=== PATIENT | male | born 1985 | race Caucasian/White ===

== ENCOUNTER 2016-08-28 14:50 | Inpatient (IN) ==
[2016-08-28] MEDS ORDERED: IOPAMIDOL 100 ML BOTTLE IJ ONE (14:51)
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
[2016-08-28] MEDS ORDERED: CLINDAMYCIN 600 MG in DEXTROSE 5% IN WATER 50 ML IV ONE (16:30)
[2016-08-28] MEDS ORDERED: VANCOMYCIN 1,000 MG in 0.9 % SODIUM CHLORIDE 250 ML IV ONE (16:30)
[2016-08-28] MEDS ORDERED: ONDANSETRON 4 MG/2 ML VIAL IV ONE (16:30)
[2016-08-28] MEDS: 0.9 % SODIUM CHLORIDE 1,000 ML IV SCH ×3 (16:45→21:20)
[2016-08-28] MEDS: HYDROmorphone 2 MG/ML SYRINGE IV PRN ×3 (17:21→19:20)
[2016-08-28 18:19] LABS: Basophils # (Auto) 0.1 K/mcL (0.0-0.3); Basophils % (Auto) 0.7 % (0.0-2.0); Eosinophils # (Auto) 0.1 K/mcL (0.0-0.7); Eosinophils % (Auto) 1.1 % (0.0-7.0); Granulocytes % (Auto) 65.9 % (38.0-78.0); Lymphocytes # (Auto) 2.4 K/mcL (1.5-4.8); Lymphocytes % (Auto) 20.4 % (15.5-49.0); Mean Cell Volume 68.6 fL (80.0-100.0); Mean Corpuscular HGB Conc 30.4 g/dL (31.0-36.0); Mean Corpuscular Hemoglobin 20.8 pg (26.0-34.0); Monocytes # (Auto) 1.4 K/mcL (0.1-0.9); Monocytes % (Auto) 11.9 % (1.0-9.0); Platelet Count 639 K/mcL (140-440); RBC 5.32 M/mcL (4.50-5.90); Red Cell Distribution Width 19.1 % (11.5-14.5)
[2016-08-28 18:28] LABS: ALT/SGPT 26 U/l (0-40); Albumin 3.4 gm/dL (3.2-5.2); Albumin/Globulin Ratio 0.7 (1.0-2.3); Alkaline Phosphatase 159 U/L (39-117); Blood Urea Nitrogen 3 mg/dl (6-20)
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
[2016-08-28 19:02] LABS: Appearance,Urine HAZY; Bacteria,Urine MOD /hpf (0); Bilirubin,Urine NEG (NEG); Color,Urine YELLOW; Glucose,Urine (UA) NEGATIVE (NEG); Leukocyte Esterase,Urine 250 /uL (NEG); Nitrate,Urine NEG (NEG); Protein,Urine NEG (NEG); Specific Gravity,Urine 1.008 (1.000-1.035); Urine Blood 0.2 mg/dL (<0.03); Urine RBC 8 /hpf (0-1); Urine Squamous Epithelial Cell < 1 /hpf (0-4); Urine Transitional Epi Cells < 1 /hpf (0-2); Urine WBC 37 /hpf (0-4)
[2016-08-28] MEDS ORDERED: 0.9 % SODIUM CHLORIDE 1,000 ML IV ONE (19:08)
[2016-08-28] MEDS ORDERED: traZODone HCL 50 MG TABLET PO PRN (19:18)
[2016-08-28] MEDS ORDERED: DIAZEPAM 5 MG TABLET PO PRN (19:27)
[2016-08-28] MEDS: oxyCODONE HCL 5 MG TABLET PO PRN (20:36)
[2016-08-28] MEDS ORDERED: ZOLPIDEM 10 MG TABLET PO SCH (21:00)
[2016-08-28] MEDS: morphine 30 MG TAB.SR.12H PO SCH (21:15)
[2016-08-28] MEDS: METOPROLOL TARTRATE 25 MG TABLET PO SCH (21:15)
[2016-08-28] MEDS: DOCUSATE SODIUM 100 MG CAPSULE PO SCH (22:49)
[2016-08-28] MEDS: ERTAPENEM 1 GM in 0.9 % SODIUM CHLORIDE 50 ML IV SCH (22:49)
[2016-08-28] MEDS: BACLOFEN 10 MG TABLET PO SCH (22:49)
[2016-08-28] MEDS: PREGABALIN 100 MG CAPSULE PO SCH (22:49)
[2016-08-28] MEDS: 0.9 % SODIUM CHLORIDE 10 ML SYRINGE IV SCH ×2 (23:23)
[2016-08-29] MEDS: oxyCODONE HCL 5 MG TABLET PO PRN ×5 (00:27→21:44)
[2016-08-29] MEDS: 0.9 % SODIUM CHLORIDE 1,000 ML IV SCH ×6 (00:45→21:16)
[2016-08-29] MEDS: HYDROmorphone 2 MG/ML SYRINGE IV PRN (04:26)
[2016-08-29] MEDS: morphine 30 MG TAB.SR.12H PO SCH ×3 (05:00→21:45)
[2016-08-29] MEDS: 0.9 % SODIUM CHLORIDE 10 ML SYRINGE IV SCH ×3 (05:43→16:59)
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
[2016-08-29] MEDS ORDERED: ENOXAPARIN 40 MG/0.4 ML SYRINGE SQ SCH (09:00)
[2016-08-29] MEDS: METOPROLOL TARTRATE 25 MG TABLET PO SCH ×2 (09:53→21:47)
[2016-08-29] MEDS: PREGABALIN 100 MG CAPSULE PO SCH ×2 (09:53→21:47)
[2016-08-29] MEDS: ERTAPENEM 1 GM in 0.9 % SODIUM CHLORIDE 50 ML IV SCH (09:53)
[2016-08-29] MEDS: BACLOFEN 10 MG TABLET PO SCH ×2 (09:53→16:59)
[2016-08-29] MEDS ORDERED: VANCOMYCIN 1,000 MG in 0.9 % SODIUM CHLORIDE 250 ML IV SCH (10:00)
[2016-08-29] MEDS: DOCUSATE SODIUM 100 MG CAPSULE PO SCH (10:32)
[2016-08-29] MEDS ORDERED: HYDROmorphone 2 MG/ML SYRINGE IV ONE (11:11)
[2016-08-29] MEDS ORDERED: HYDROmorphone 2 MG/ML SYRINGE ONE ×2 (11:30→22:40)
[2016-08-29] MEDS ORDERED: LORazepam 2 MG/ML VIAL IV ONE ×2 (13:03→13:05)
[2016-08-29] MEDS ORDERED: PROPOFOL 200 MG/20 ML VIAL IV ONE (14:00)
[2016-08-29] MEDS ORDERED: GLYCOPYRROLATE 0.2 MG/ML VIAL IV ONE (14:00)
[2016-08-29] MEDS ORDERED: ROCURONIUM 10 MG/ML ML IV ONE (14:00)
[2016-08-29] MEDS ORDERED: fentaNYL 250 MCG/5 ML VIAL IV ONE (14:00)
[2016-08-29] MEDS ORDERED: NEOSTIGMINE 1 MG/ML VIAL IV ONE (14:00)
[2016-08-29] MEDS ORDERED: KETAMINE 100 MG/ML ML IV ONE (14:00)
[2016-08-29] MEDS ORDERED: LIDOCAINE HCL/PF 100 MG/5 ML SYRINGE IV ONE (14:00)
[2016-08-29] MEDS ORDERED: DEXAMETHASONE 10 MG/ML VIAL IV ONE (14:00)
[2016-08-29] MEDS ORDERED: MIDAZOLAM 5 MG/5 ML VIAL IV ONE (14:00)
[2016-08-29] MEDS ORDERED: ONDANSETRON 4 MG/2 ML VIAL IV ONE (14:00)
[2016-08-29] MEDS ORDERED: ePHEDrine 50 MG/ML AMPUL IV PRN (14:16)
[2016-08-29] MEDS ORDERED: NALOXONE HCL 0.4 MG/ML VIAL IV PRN (14:16)
[2016-08-29] MEDS ORDERED: fentaNYL 100 MCG/2 ML VIAL IV PRN (14:16)
[2016-08-29] MEDS ORDERED: PROMETHAZINE 25 MG/ML VIAL IV PRN (14:16)
[2016-08-29] MEDS ORDERED: FLUMAZENIL 0.1 MG/ML ML IV PRN (14:16)
[2016-08-29] MEDS ORDERED: LACTATED RINGERS 250 ML IV PRN (14:16)
[2016-08-29] MEDS ORDERED: METOCLOPRAMIDE 10 MG/2 ML VIAL IV PRN (14:16)
[2016-08-29] MEDS ORDERED: IPRATROPIUM/ALBUTEROL 3 ML AMPUL.NEB NEB PRN (14:16)
[2016-08-29] MEDS ORDERED: BENZOCAINE/MENTHOL 1 LOZENGE PO PRN (14:16)
[2016-08-29] MEDS ORDERED: MEPERIDINE 25 MG/ML SYRINGE IV PRN (14:16)
[2016-08-29] MEDS ORDERED: HYDROmorphone 2 MG/ML SYRINGE IV PRN ×2 (14:16→22:11)
[2016-08-29] MEDS ORDERED: diphenhydrAMINE 50 MG/ML VIAL IV PRN (14:16)
[2016-08-29] MEDS ORDERED: ONDANSETRON 4 MG/2 ML VIAL IV PRN (14:16)
[2016-08-29] MEDS ORDERED: METHOCARBAMOL 1,000 MG/10 ML VIAL IV PRN (14:16)
[2016-08-29] MEDS ORDERED: LACTATED RINGERS 1,000 ML IV SCH (14:30)
--- NOTE | 2016-08-29 14:33 | Brief Operative Note ---
Date of procedure: 08/29/16 Pre-op diagnosis: PERINEAL AND RIGHT GROIN ABSCESS Post-op diagnosis: other (PERINEAL AND RIGHT GROIN ABSCESS IN CONTINUITY) Procedure: INCISION AND DEBRIDEMENT OF PERINEAL AND RIGHT GROIN ABSCESS Grafts/Implants: No Anesthesia: GLMA Findings: LARGE ABSCESS EXTENDING FROM RIGHT PERIANAL SPACE INTO RIGHT BUTTOCK AND ANTERIORLY INTO RIGHT GROIN NEAR LOWER PUBIC AREA Surgeon: Miri Membreno Estimated blood loss (cc): 30 Specimens Removed/Pathology: other (AEROBIC AND ANAEROBIC CULTURES) Condition: stable Disposition: PACU
[2016-08-29] MEDS ORDERED: traZODone HCL 50 MG TABLET PO PRN (21:00)
[2016-08-29] MEDS ORDERED: ZOLPIDEM 10 MG TABLET PO SCH (21:00)
[2016-08-29] MEDS ORDERED: DIAZEPAM 5 MG TABLET PO PRN (22:09)
[2016-08-29] MEDS ORDERED: DIAZEPAM 5 MG TABLET ONE (22:40)
[2016-08-30] MEDS ORDERED: HYDROmorphone 2 MG/ML SYRINGE ONE ×3 (00:56→06:07)
[2016-08-30] MEDS: oxyCODONE HCL 5 MG TABLET PO PRN ×2 (01:23→10:59)
[2016-08-30] MEDS: VANCOMYCIN 1,000 MG in 0.9 % SODIUM CHLORIDE 250 ML IV SCH ×2 (02:55→12:24)
[2016-08-30] MEDS: 0.9 % SODIUM CHLORIDE 1,000 ML IV SCH ×2 (03:08→11:53)
[2016-08-30] MEDS ORDERED: DIAZEPAM 5 MG TABLET ONE (04:17)
[2016-08-30] MEDS: morphine 30 MG TAB.SR.12H PO SCH ×2 (05:58→14:20)
[2016-08-30] MEDS: PREGABALIN 100 MG CAPSULE PO SCH (10:33)
[2016-08-30] MEDS: METOPROLOL TARTRATE 25 MG TABLET PO SCH (10:33)
[2016-08-30] MEDS ORDERED: VANCOMYCIN 1,500 MG in 0.9 % SODIUM CHLORIDE 500 ML IV SCH (13:00)
--- NOTE | 2016-08-30 14:11 | Discharge Summary ---
Providers - Providers Patient information: Note initiated : 08/30/16 at 2:06 pm Service Date, if different from initiated Date: [] Patient: Urbano Jernigan 30 y/o M admitted on 08/28/16 for Rash/Wound to Coccyx. Chief Complaint: [] Date of admission: 08/28/16 Discharge date: 08/30/16 Attending physician: Miri Membreno Hospitalization Hospital course: 30-year-old male with history of T12 paraplegia and multiple decubitus ulcersrequiring multiple surgeries in the past. Patient presents with an abscess starting in his left buttock and extending anteriorly into his groin up to the suprapubic area. This was drained with Multiple counter drains one yesterday. He was packed with Aquasol AG and had a [place] drain placed and 2 counter incisions in the buttock Cultures grew out Staphylococcus aureus. He was previously positive for MRSA and VRE. The wound base is presently clean. He he has been uncooperative in his care. He has pulled his packing out and has removed his drains. He also has been venturing outside where his been seen to smokes suspicious substances along with his friend and his girlfriend. The patient states that he can care for his wounds at home He has therefore been discharged. [facility] Discharge diagnosis: perineal and sacral abscess Secondary discharge diagnosis: MULTIPLE DECUBITUS ULCERS PERIANAL AND PERINEAL ABSCESS t12 PARAPLEGIA Reason for admission: PERINEAL AND SACRAL ABSCESS Procedures: INCISION AND DEBRIDEMENT OF PERINEAL AND PERIANAL ABSCESS EXTENDING INTO LEFT GROIN AND SUPRAPUBIC AREA Complications: NONE Exam Temp Pulse Resp BP Pulse Ox 97.1 F L 82 18 144/78 97 08/30/16 07:08 08/30/16 07:08 08/30/16 07:08 08/30/16 07:08 08/30/16 07:49 - Neck no masses, no lymphadectomy, no venous distension - Cardiovascular Cardiovascular exam IM: Present: RRR, +S1, +S2 - Respiratory clear to auscultation - Abdomen Abdomen: Present: soft, non tender, bowel sounds - Rectum Rectum: Present: other (TOTAL LACK OF ANAL ACTIVITY;LARGE LEFT PERIANAL ABSCESS EXTENDING INTO PERIRECTAL SPACE AND ANTERIORLY INTO THE GROIN AND SUPRAPUBIC AREA) - Integumentary Present: other (SACRAL AND RIGHT ISCHIAL DECUBITUS ULCER; SUPERFICIAL ULCERATIONS RIGHT GREAT TOE) - Neurologic Present: other (t 12 PARAPLEGIA) Discharge Plan - Patient/Caregiver Discharge Instructions Activity: increase activity as tolerated Diet: Regular Diet Prescriptions: Doxycycline Monohydrate [Mondoxyne Nl] 100 mg PO BID #30 capsule - Follow up Plan Follow up with: Yari Marquez ARNP [Primary Care Provider] - Disposition: Home, Self-Care Prognosis: Good Rehab Potential: Good I certify that the patient requires SNF services.: No Overall status at discharge: patient is progressing back to baseline Pending Studies Resuscitation Status Full Code Diet Regular Diet Start Shakira Aug 30 Breakfast Hydromorphone HCl (Dilaudid) 1 mg IV Q2HP PRN PRN Reason: Pain Last Admin: 08/30/16 11:20 Dose: 1 mg Sodium Chloride (Sodium Chloride 0.9%) 1,000 mls @ 100 mls/hr IV .Q10H [facility] Last Admin: 08/30/16 11:53 Dose: Not Given Admin: 08/30/16 03:08 Dose: Not Given Admin: 08/29/16 21:16 Dose: Not Given Vancomycin HCl 1,500 mg/ (Sodium Chloride) 500 mls @ 333.3 mls/hr IV Q12H [facility] Last Admin: 08/30/16 13:54 Dose: Not Given Metoprolol Tartrate (Lopressor) 25 mg PO BID [facility] Last Admin: 08/30/16 10:33 Dose: 25 mg Admin: 08/29/16 21:47 Dose: 25 mg Morphine Sulfate (Ms Contin) 60 mg PO Q8 [facility] Last Admin: 08/30/16 05:58 Dose: 60 mg Admin: 08/29/16 21:45 Dose: 60 mg Oxycodone HCl (Roxicodone) 20 mg PO Q4HP PRN PRN Reason: Pain Last Admin: 08/30/16 10:59 Dose: 20 mg Admin: 08/30/16 01:23 Dose: 20 mg Admin: 08/29/16 21:44 Dose: 20 mg Admin: 08/29/16 17:34 Dose: 20 mg Pregabalin (Lyrica) 100 mg PO BID [facility] Last Admin: 08/30/16 10:33 Dose: 100 mg Admin: 08/29/16 21:47 Dose: 100 mg Zolpidem Tartrate (Ambien) 5 mg PO HS [facility] Last Admin: 08/29/16 21:46 Dose: 5 mg Shift Summary 08/30/16 03:47 Shift Summary by Samantha Stein Patient A&O, independent in room. Pt girlfriend was given a bed around 0300 this morning. Pt signed a release of reliability form to go outside to smoke. Has left about 3 times tonight. C/o uncontrolled pain, I called the Dr and got a order for 1 mg IV dilaudid Q2H and a Valium order for PTs anxiety. Pt refused IV vanco at time until after his shower. Patient took a shower and was advised not to d/t surgical dressing, refused plastic covering as well. upon insistence , I told him to not soak wound and not to scrub it or get soap in it. during his shower, the alva drain came out of buttock/groin wound as well as his IV. New IV placed, IV vanco hung 5 hours late. I reinforced the buttock dressing with Gauze pads held on by underwear. Will update further at bedside Initialized on 08/30/16 03:47 - END OF NOTE
--- NOTE | 2016-09-03 12:48 | Operative Note ---
DATE OF OPERATION: 08/29/2016 PREOPERATIVE DIAGNOSIS: Perineal and left groin abscess. POSTOPERATIVE DIAGNOSIS: Perineal and left groin abscess in continuity. PROCEDURE: Incision and debridement of perineal and left groin abscess. SURGEON: Miri Membreno MD. FINDINGS: Large abscess extending from left perianal space into left buttock and anteriorly into the left groin extending into the lower pubic area. ANESTHESIA: General LMA. DESCRIPTION OF PROCEDURE: Under general anesthesia, the patient was placed in high lithotomy position. A timeout procedure was carried out as per protocol. An 18-gauge needle with a 12 mL syringe was used to aspirate the abscess cavity in the left perianal space. An 11 blade was then used to make an incision in the abscess cavity, and a large Anur[place]ha clamp was placed into the cavity. An opening was made in the tissue with removal of skin to assure that there was adequate drainage. Large volume of purulence was removed. Aerobic and anaerobic cultures were sent. A counter incision was made in the inguinal crease at the base of the scrotum, and using finger fractionation the large cavity which extended up to the pubic area was opened. Using blunt dissection, finger fractionation of necrotic tissue was carried out. The area was flushed with saline using about 1000 mL of saline. Using Metzenbaum scissors, necrotic tissue was debrided. A 1/4-inch [place] was placed in the upper incision and brought out through the left perianal space incision. This was sutured in place using 2-0 nylon. The upper tract was packed with two sheets of 5 x 4 inch Aquacel AG. The left ischial cavity which was a chronic cavity was packed with Aquacel AG gauze. The patient tolerated the procedure well. ABD pad and briefs were placed to hold the dressing intact. The patient was taken out of lithotomy position. He was awakened, extubated and transferred to the postanesthetic care unit in stable, satisfactory condition. LCS:tenzin Job ID: [id number] Doc ID: [id number] Miri Membreno M.D.
== END 2016-08-30 16:15 | disposition home or self-care (01) | DRG 603 ==
LOC: ED 14:50 → MEDSUR 20:19
PROVIDERS: ADMIT Family Medicine Adult Medicine; ATTEND Family Medicine Adult Medicine